=== PATIENT | male | born 1985 | race Hispanic/Latino ===

== ENCOUNTER 2017-01-18 13:04 | Emergency (ER) | payer SELFPAY ==
[2017-01-18 13:44] VITALS: BP 182/95
[2017-01-18] MEDS ORDERED: PERCOCET 5/325 PO ONE (16:18)
--- NOTE | 2017-01-18 19:35 | Emergency Department Report ---
Entered by YONY MARTIN, acting as scribe for QUINN SALAMANCA PA. HPI - General Chief Complaint: Dental/Oral Time Seen by Provider: 01/18/17 15:15 - HPI HPI: 32 y/o male with PMHx of bronchitis, presents to the ED c/o left lower back tooth pain. denies fever and chills. Patient describes feeling "like wanting to pass out" due to tooth pain. Rates pain 10/10 in severity. Patient states he went to dentist yesterday and was prescribed ibuprofen and amoxicillin with mild relief. Patient started to bargain for pain medication. Discussed with him I can give him some pain medicine to go home with should be Ultram / Motrin and I cannot give him anything stronger. Denies and a sore throat or drooling. Denies any coughing or congestion. ED Past Medical Hx - Past Medical History Previous Medical History?: Yes Hx Hypertension: Yes (no meds) Hx Diabetes: Yes (boarder line,no meds) Hx Psychiatric Treatment: Yes (Schizophrenia) Additional medical history: Bronchitis - Surgical History Past Surgical History?: No - Family History Family history: hypertension - Social History Smoking Status: Current Every Day Smoker Substance Use Type: None - Medications Home Medications: Home Medications Medication Instructions Recorded Confirmed Last Taken Type Albuterol Sulfate [Ventolin HFA] 2 puff IH Q4H PRN #1 hfa.aer.ad 06/05/15 Unknown Rx Azithromycin [Zithromax Z-MUSA] 250 mg PO DAILY #1 pkg 06/05/15 Unknown Rx Bactrim DS TAB 1 tab PO BID 06/05/15 06/05/15 06/05/15 History Divalproex [DepaKOTE DR] 500 mg PO DAILY 06/05/15 06/05/15 06/04/15 History FLUoxetine [PROzac] 20 mg PO QDAY 06/05/15 06/05/15 06/04/15 History Loratadine [Claritin] 10 mg PO DAILY #30 tablet 06/05/15 Unknown Rx Prednisone [predniSONE 10 mg 10 mg PO .TAPER #1 tab.ds.pk 06/05/15 Unknown Rx (6-Day Pack, 21 Tabs)] Amoxicillin [Amoxicillin TAB] 875 mg PO BID #20 tablet 06/02/16 Unknown Rx Fluticasone [Flonase] 1 spray NS QDAY #1 bottle 06/02/16 Unknown Rx methylPREDNISolone [Medrol Dose 4 mg PO QAM #1 dosepack 06/02/16 Unknown Rx Musa] traMADol [Ultram] 50 mg PO Q6HR PRN #20 tablet 01/18/17 Unknown Rx ED Review of Systems ROS: Stated complaint: TOOTH PAIN Other details as noted in HPI Comment: All other systems reviewed and negative Constitutional: denies: chills, fever ENT: dental pain. denies: ear pain, throat pain, congestion Respiratory: no symptoms reported Cardiovascular: denies: chest pain, palpitations, edema, syncope Gastrointestinal: denies: abdominal pain, nausea, vomiting, diarrhea Musculoskeletal: denies: back pain, arthralgia, myalgia Skin: denies: rash Neurological: headache. denies: weakness, numbness, paresthesias, confusion, abnormal gait, vertigo Physical Exam - Physical Exam Vital Signs: Vital Signs 01/18/17 13:40 Temperature 97.5 F L Pulse Rate 94 H Respiratory 18 Rate Blood Pressure 182/95 O2 Sat by Pulse 96 Oximetry General: This is a 42-year-old male well-nourished well-developed in no acute distress. Physical Exam: Head: Normocephalic atraumatic Mouth: Moist, no pharyngeal exudate or erythema. Uvula is midline and oral airway is patent. Patient with fractured tooth to right lower #17. No pulp exposure noted. Positive dental caries. No gingival enlargement or dental tenderness. No facial swelling. No peritonsillar abscesses. Neck: Supple, no C-spine tenderness, no tracheal deviation. Nontender to palpate. no adenopathy Ears: Bilateral TMs Pearly ash. bilateral EAC without any redness swelling or drainage Eyes: Bilateral pupils equal and reactive to light, bilateral EOM intact. Bilateral sclera and conjunctiva without injection. Normal accommodation Nose: Mucosa moist, NL mucosa. maxillary and frontal sinus non-tender to palpate. Lungs: Clear to auscultate bilaterally no rhonchi wheezes or rales. Normal work of breathing extremity; No CCE. +2 pulses. No neurovascular compromise Cardiovascular: S1-S2, regular rate rhythm. No murmurs. Skin: clean Dry and intact no rash no lesions Psych: Normal mood and behavior ED Course Vital Signs 01/18/17 13:40 Temperature 97.5 F L Pulse Rate 94 H Respiratory 18 Rate Blood Pressure 182/95 O2 Sat by Pulse 96 Oximetry - Reevaluation(s) Reevaluation #1: 01/18/17 16:17 To received Percocet 5/325 mg 2 tablets prior to discharge with his family. Reevaluation #2: 01/18/17 18:00: Patient discharged home with family in stable condition. ED Medical Decision Making - Medical Decision Making ED course: Patient with closed fracture, toothache and dental caries. He was seen by dentist yesterday and given Motrin and amoxicillin which he said he is taking that he said that Motrin is not relieving his pain. States that he didn' t get the prescription for Motrin filled at and he is been taking over-the- counter Motrin. Discussed with him that prescription Motrin is stronger than [id number] Motrin Suches started taking Tylenol and Ultram to help to relieve his pain. Said discussed with him he needs to start taking an antibiotic prior to having his dental work done. Patient with elevated blood pressure without any history of high blood pressure. He does not have any symptoms and elevated blood pressure. Critical care attestation.: If time is entered above; I have spent that time in minutes in the direct care of this critically ill patient, excluding procedure time. ED Disposition Clinical Impression: Toothache, Dental caries, Elevated blood-pressure reading without diagnosis of hypertension Fracture, tooth Qualifiers: Encounter type: initial encounter Fracture type: closed Qualified Code(s): S02.5XXA - Fracture of tooth (traumatic), initial encounter for closed fracture Disposition: DISCHARGED TO HOME OR SELFCARE Is pt being admited?: No Does the pt Need Aspirin: No Condition: Stable Instructions: Dental Caries (ED), Heart Healthy Diet (ED), Hypertension (ED), Toothache (ED) Additional Instructions: Take medication as prescribed. Dentist. Make follow-up appointment. Dentist for dental procedure The skin along with her blood pressure and schedule appointment with the primary care doctor for follow-up visit high blood pressure reading. Prescriptions: traMADol [Ultram] 50 mg PO Q6HR PRN #20 tablet PRN Reason: Pain Referrals: PRIMARY CARE,MD [Primary Care Provider] - 3-5 Days Your, Dentist [Other] - 3-5 Days Forms: Accompanied Note, Work/School Release Form(ED) This documentation as recorded by the VERONICA barrera ELIZABETH,accurately reflects the service I personally performed and the decisions made by ,QUINN SALAMANCA PA.
== END 2017-01-18 17:03 | disposition home or self-care (01) ==
LOC: ED 13:04
DX: S02.5XXA Fracture of tooth (traumatic), initial encounter for closed fracture (principal); K02.9 Dental caries, unspecified; I10 Essential (primary) hypertension; E11.9 Type 2 diabetes mellitus without complications; F20.9 Schizophrenia, unspecified; F17.200 Nicotine dependence, unspecified, uncomplicated; X58.XXXA Exposure to other specified factors, initial encounter; Y93.89 Activity, other specified; Y99.8 Other external cause status; Y92.89 Other specified places as the place of occurrence of the external cause
CPT/HCPCS: 99282

== ENCOUNTER 2017-01-24 10:07 | Emergency (ER) | payer SELFPAY ==
[2017-01-24 10:46] LABS: Basophils % (Auto) 0.5 % (0.0-1.8); Eosinophils % (Auto) 0.2 % (0.0-4.3); Hematocrit 50.5 % (35.5-45.6); Hemoglobin 17.6 gm/dl (11.8-15.2); Mean Corpuscular HGB Conc 35 % (32-34); Mean Corpuscular Hemoglobin 29 pg (28-32); Mean Corpuscular Volume 84 fl (84-94); Platelet Count 255 K/mm3 (140-440); Red Blood Count 6.05 M/mm3 (3.65-5.03); Red Cell Distribution Width 13.4 % (13.2-15.2); White Blood Count 10.8 K/mm3 (4.5-11.0)
[2017-01-24 11:04] LABS: Anion Gap 23 mmol/L; Blood Urea Nitrogen 18 mg/dL (9-20); Calcium 9.8 mg/dL (8.4-10.2); Carbon Dioxide 23 mmol/L (22-30); Chloride 93.6 mmol/L (98-107); Glucose 157 mg/dL (75-100); Sodium 137 mmol/L (137-145)
[2017-01-24] MEDS ORDERED: MAG-OX PO ONE (19:26)
[2017-01-24] MEDS ORDERED: K-DUR PO ONE (19:26)
--- NOTE | 2017-01-24 19:27 | Emergency Department Report ---
ED General Adult HPI - General Chief complaint: Chest Pain Stated complaint: L SHOULDER PAIN/CP/ELEVATED BP Time Seen by Provider: 01/24/17 19:25 Source: patient, RN notes reviewed Mode of arrival: Ambulatory Limitations: No Limitations - History of Present Illness Initial comments: This is a 32-year-old male. He is previously unknown to me. He has a past medical history of hypertension and schizophrenia. Contrary to what is documented in the nursing note, patient complains of mild dental pain secondary to a recent dental extraction, mild headache, and bilateral arm tingling. To me he denies chest pain, shortness of breath, vomiting, diaphoresis. There is no leg pain. There is no leg swelling. No recent trips greater than 4 hours. No recent hospital admissions. Patient denies vomiting, hematemesis, diaphoresis, homicidality, suicidality, he also denies recent aspirin ingestion within the past 7 days, and denies cocaine ingestion. -: Gradual Location: mouth, left, right, upper extremity Consistency: intermittent Improves with: none Worsens with: none Associated Symptoms: denies other symptoms. denies: confusion, chest pain, cough, diaphoresis, fever/chills, loss of appetite, malaise, nausea/vomiting, shortness of breath, syncope - Related Data Home Medications Medication Instructions Recorded Confirmed Last Taken Bactrim DS TAB 1 tab PO BID 06/05/15 06/05/15 06/05/15 Divalproex [Rayray ALY] 500 mg PO DAILY 06/05/15 06/05/15 06/04/15 FLUoxetine [PROzac] 20 mg PO QDAY 06/05/15 06/05/15 06/04/15 Previous Rx's Medication Instructions Recorded Last Taken Type Albuterol Sulfate [Ventolin HFA] 2 puff IH Q4H PRN #1 hfa.aer.ad 06/05/15 Unknown Rx Azithromycin [Zithromax Z-MUSA] 250 mg PO DAILY #1 pkg 06/05/15 Unknown Rx Loratadine [Claritin] 10 mg PO DAILY #30 tablet 06/05/15 Unknown Rx Prednisone [predniSONE 10 mg 10 mg PO .TAPER #1 tab.ds.pk 06/05/15 Unknown Rx (6-Day Pack, 21 Tabs)] Amoxicillin [Amoxicillin TAB] 875 mg PO BID #20 tablet 06/02/16 Unknown Rx Fluticasone [Flonase] 1 spray NS QDAY #1 bottle 06/02/16 Unknown Rx methylPREDNISolone [Medrol Dose 4 mg PO QAM #1 dosepack 06/02/16 Unknown Rx Musa] traMADol [Ultram] 50 mg PO Q6HR PRN #20 tablet 01/18/17 Unknown Rx Quetiapine Fumarate [SEROquel] 50 mg PO BID #60 tab 01/25/17 Unknown Rx Allergies Allergy/AdvReac Type Severity Reaction Status Date / Time No Known Allergies Allergy Verified 01/24/17 10:13 ED Review of Systems ROS: Stated complaint: L SHOULDER PAIN/CP/ELEVATED BP Other details as noted in HPI Constitutional: denies: fever ENT: dental pain Cardiovascular: as per HPI Endocrine: see HPI Gastrointestinal: as per HPI Genitourinary: as per HPI Musculoskeletal: as per HPI Skin: as per HPI Neurological: as per HPI, numbness, paresthesias Psychiatric: as per HPI. denies: homicidal thoughts, suicidal thoughts ED Past Medical Hx - Past Medical History Hx Hypertension: Yes Hx Diabetes: Yes (boarderline,no meds) Hx Psychiatric Treatment: Yes (Schizophrenia) Additional medical history: Bronchitis - Surgical History Past Surgical History?: No - Social History Smoking Status: Current Every Day Smoker Substance Use Type: Prescribed - Medications Home Medications: Home Medications Medication Instructions Recorded Confirmed Last Taken Type Albuterol Sulfate [Ventolin HFA] 2 puff IH Q4H PRN #1 hfa.aer.ad 06/05/15 Unknown Rx Azithromycin [Zithromax Z-MUSA] 250 mg PO DAILY #1 pkg 06/05/15 Unknown Rx Bactrim DS TAB 1 tab PO BID 06/05/15 06/05/15 06/05/[address] [DepaKOTE DR] 500 mg PO DAILY 06/05/15 06/05/15 06/04/15 History FLUoxetine [PROzac] 20 mg PO QDAY 06/05/15 06/05/15 06/04/15 History Loratadine [Claritin] 10 mg PO DAILY #30 tablet 06/05/15 Unknown Rx Prednisone [predniSONE 10 mg 10 mg PO .TAPER #1 tab.ds.pk 06/05/15 Unknown Rx (6-Day Pack, 21 Tabs)] Amoxicillin [Amoxicillin TAB] 875 mg PO BID #20 tablet 06/02/16 Unknown Rx Fluticasone [Flonase] 1 spray NS QDAY #1 bottle 06/02/16 Unknown Rx methylPREDNISolone [Medrol Dose 4 mg PO QAM #1 dosepack 06/02/16 Unknown Rx Musa] traMADol [Ultram] 50 mg PO Q6HR PRN #20 tablet 01/18/17 Unknown Rx Quetiapine Fumarate [SEROquel] 50 mg PO BID #60 tab 01/25/17 Unknown Rx ED Physical Exam - General Limitations: No Limitations General appearance: alert, in no apparent distress - Head Head exam: Present: atraumatic, normocephalic - Eye Eye exam: Present: normal appearance, EOMI. Absent: nystagmus - ENT ENT exam: Present: normal exam, normal orophraynx, mucous membranes moist, normal external ear exam - Neck Neck exam: Present: normal inspection, full ROM. Absent: tenderness, meningismus - Respiratory Respiratory exam: Present: normal lung sounds bilaterally. Absent: respiratory distress, wheezes, rales, rhonchi, stridor, chest wall tenderness - Cardiovascular Cardiovascular Exam: Present: regular rate, normal rhythm, normal heart sounds. Absent: bradycardia, tachycardia, irregular rhythm, systolic murmur, diastolic murmur, rubs, gallop - GI/Abdominal GI/Abdominal exam: Present: soft, normal bowel sounds. Absent: distended, tenderness, guarding, rebound, rigid, pulsatile mass - Rectal Rectal exam: Present: deferred - Extremities Exam Extremities exam: Present: normal inspection, full ROM, normal capillary refill. Absent: tenderness, pedal edema, joint swelling, calf tenderness - Back Exam Back exam: Present: normal inspection, full ROM. Absent: tenderness, CVA tenderness (R), CVA tenderness (L), muscle spasm, paraspinal tenderness, vertebral tenderness - Neurological Exam Neurological exam: Present: alert, oriented X3, normal gait, other (Extraocular movements intact. Tongue midline. No facial droop. Facial sensation intact to light touch in the V1, V2, V3 distribution bilaterally. 5 and 5 strength in 4 extremities.. Sensation is intact to light touch in 4 extremities.). Absent : motor sensory deficit - Psychiatric Psychiatric exam: Present: normal affect, normal mood - Skin Skin exam: Present: warm, dry, intact, normal color. Absent: rash ED Course Vital Signs 05/25/17 05/25/17 05/25/17 10:13 21:06 22:37 Temperature 97.2 F L 98.8 F Pulse Rate 69 54 L 86 Respiratory 16 20 18 Rate Blood Pressure 141/67 Blood Pressure 116/48 136/70 [Left] O2 Sat by Pulse 99 97 98 Oximetry 01/24/17 22:39 Temperature Pulse Rate Respiratory 20 Rate Blood Pressure Blood Pressure [Left] O2 Sat by Pulse 97 Oximetry - Reevaluation(s) Reevaluation #1: 01/24/17 20:45 differential diagnosis: Nonspecific paresthesias, nonspecific dentalgia, Gen. medical evaluation Assessment and plan: 32-year-old male with a number of nonspecific complaints. He is afebrile with reassuring vital signs, has a GCS of 15, with an NIH score of 0. He is not complaining admitted to chest pain or shortness of breath to me. He has no extremity weakness or numbness, there is no clinical indication of epidural compression syndrome, he walks with a steady gait. His intraoral exam is unremarkable, he is low risk by MARIA LUZ score, low risk by heart score, has no pulmonary embolus or DVT risk factors, is low risk by well' s criteria, and is perc negative. His post extraction dental sites appear to be healing well, the patient is suitable to follow up with an outpatient primary care doctor for his numerous nonspecific symptoms. Initial EKG has nonspecific abnormalities, repeat EKG normalized, patient suitable to follow up with outpatient cardiology. Given that he does not complain of chest pain or shortness of breath to [place], I find the patient to be very low risk for major adverse cardiac event. ED Medical Decision Making - Lab Data Result diagrams: 01/24/17 10:29 01/24/17 10:29 Vital Signs 01/24/17 10:13 Temperature 97.2 F L Pulse Rate 69 Respiratory 16 Rate Blood Pressure 141/67 O2 Sat by Pulse 99 Oximetry Lab Results 01/24/17 01/24/17 01/24/17 Range/Units 10:29 10:29 13:14 WBC 10.8 (4.5-11.0) K/mm3 RBC 6.05 H (3.65-5.03) M/mm3 Hgb 17.6 H (11.8-15.2) gm/dl Hct 50.5 H (35.5-45.6) % MCV 84 (84-94) fl MCH 29 (28-32) pg MCHC 35 H (32-34) % RDW 13.4 (13.2-15.2) % Plt Count 255 (140-440) K/mm3 Lymph % (Auto) 18.3 (13.4-35.0) % Monroe % (Auto) 7.9 H (0.0-7.3) % Eos % (Auto) 0.2 (0.0-4.3) % Baso % (Auto) 0.5 (0.0-1.8) % Lymph # 2.0 (1.2-5.4) K/mm3 Monroe # 0.9 H (0.0-0.8) K/mm3 Eos # 0.0 (0.0-0.4) K/mm3 Baso # 0.1 (0.0-0.1) K/mm3 Seg Neutrophils % 73.1 H (40.0-70.0) % Seg Neutrophils # 7.9 H (1.8-7.7) K/mm3 Sodium 137 (137-145) mmol/L Potassium 3.0 L (3.6-5.0) mmol/L Chloride 93.6 L (98-107) mmol/L Carbon Dioxide 23 (22-30) mmol/L Anion Gap 23 mmol/L BUN 18 (9-20) mg/dL Creatinine 0.9 (0.8-1.5) mg/dL Estimated GFR > 60 ml/min BUN/Creatinine Ratio 20.00 % Glucose 157 H (75-100) mg/dL Calcium 9.8 (8.4-10.2) mg/dL Magnesium (1.7-2.3) mg/dL Troponin T < 0.010 < 0.010 (0.00-0.029) ng/mL 01/24/17 Range/Units 13:14 WBC (4.5-11.0) K/mm3 RBC (3.65-5.03) M/mm3 Hgb (11.8-15.2) gm/dl Hct (35.5-45.6) % MCV (84-94) fl MCH (28-32) pg MCHC (32-34) % RDW (13.2-15.2) % Plt Count (140-440) K/mm3 Lymph % (Auto) (13.4-35.0) % Monroe % (Auto) (0.0-7.3) % Eos % (Auto) (0.0-4.3) % Baso % (Auto) (0.0-1.8) % Lymph # (1.2-5.4) K/mm3 Monroe # (0.0-0.8) K/mm3 Eos # (0.0-0.4) K/mm3 Baso # (0.0-0.1) K/mm3 Seg Neutrophils % (40.0-70.0) % Seg Neutrophils # (1.8-7.7) K/mm3 Sodium (137-145) mmol/L Potassium (3.6-5.0) mmol/L Chloride (98-107) mmol/L Carbon Dioxide (22-30) mmol/L Anion Gap mmol/L BUN (9-20) mg/dL Creatinine (0.8-1.5) mg/dL Estimated GFR ml/min BUN/Creatinine Ratio % Glucose (75-100) mg/dL Calcium (8.4-10.2) mg/dL Magnesium 2.30 (1.7-2.3) mg/dL Troponin T (0.00-0.029) ng/mL - EKG Data -: EKG Interpreted by Me EKG shows normal: sinus rhythm Rate: normal - EKG Data 01/24/17 20:48 EKG #1 demonstrates sinus bradycardia, 59 beats per minute, borderline left axis deviation, nonspecific T-wave abnormality, not morphologically consistent with STEMI. EKG #2 demonstrates normal sinus, 60 bpm, normal axis, normal intervals, not morphologically consistent with STEMI. - Radiology Data Radiology results: image reviewed interpreted by me: X-ray of the chest is negative for acute disease Critical care attestation.: If time is entered above; I have spent that time in minutes in the direct care of this critically ill patient, excluding procedure time. ED Disposition Clinical Impression: Toothache Disposition: DISCHARGED TO HOME OR SELFCARE Is pt being admited?: No Does the pt Need Aspirin: No Condition: Stable Additional Instructions: Continue current outpatient medications. 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 Return to the ER right away with new pain , worsened pain, migration of pain, fevers or chills, intractable nausea or vomiting, confusion, change in mental status, inability to tolerate liquid feeds. Referrals: PRIMARY CARE, [Primary Care Provider] - 3-5 Days JAMES CABALLERO MD [Staff Physician] - 3-5 Days ELEANOR SMALL MD [Staff Physician] - 3-5 Days GINETTE MAYA MD [Staff Physician] - 3-5 Days
[2017-01-24] MEDS ORDERED: LIDOCAINE VISCOUS 2% PO ONE (19:42)
[2017-01-24] MEDS ORDERED: TORADOL IM ONE (19:42)
[2017-01-24 22:43] VITALS: BP 136/70
--- NOTE | 2017-01-25 07:28 | XRay Report ---
CHEST 2 VIEWS INDICATION: Chest pain. COMPARISON: 09/02/2010 FINDINGS: PA and lateral chest radiographs demonstrate stable cardiomediastinal silhouette. Clear lungs. Slightly elevated right hemidiaphragm. Unremarkable bones. CONCLUSION: No acute disease. Thank you for the opportunity to participate in this patient's care.
== END 2017-01-24 22:37 | disposition home or self-care (01) ==
LOC: ED 10:07
DX: K08.89 Other specified disorders of teeth and supporting structures (principal); I10 Essential (primary) hypertension; F20.9 Schizophrenia, unspecified; F17.200 Nicotine dependence, unspecified, uncomplicated
CPT/HCPCS: 36415; 71020; 80048; 83735; 84484; 85025; 93005; 93010; 96372; 99285; J1885

== ENCOUNTER 2017-01-25 03:37 | Emergency (ER) | payer SELFPAY ==
--- NOTE | 2017-01-25 13:14 | Emergency Department Report ---
ED General Adult HPI - General Chief complaint: Headache Stated complaint: MIGRAINE Time Seen by Provider: 01/25/17 12:49 Source: patient Mode of arrival: Ambulatory Limitations: No Limitations - History of Present Illness Initial comments: The patient does not complain of headache at all. He is not speaking with the word salad. He speaks coherently if you listen carefully. He has a history of schizophrenia and bipolar disorder. He admits that he has had previous treatment at the [facility] but has not been there for 2 years. He is not hallucinating, suicidal agitated or violent. He has no thoughts of self-harm. He states he is suffering from "anxiety and panic". He was seen here yesterday for hypokalemia and repletion was begun with 40 of potassium by mouth. He states the reason that he didn't go to the [facility] today is because it is not open "until after Saturday". He is requesting something for anxiety and panic. This is his third emergency department visit over the past week. I saw him for vague complaints of toothache several days ago. He presented for other complaints yesterday and had an expanded workup which demonstrated a potassium of 3.0 and hemoglobin over 17. He tells me he is eating and drinking fine now. He is a frequent smoker. Resents to the emergency department now the second time basically reeking of tobacco. He is not agitated at this time. He admits that he has not taken his valproic acid. He states he is not taking his Lamotrigine anymore. -: Gradual Severity scale (0 -10): 10 Consistency: intermittent, now resolved Improves with: none Worsens with: none Associated Symptoms: denies other symptoms Treatments Prior to Arrival: none - Related Data Home Medications Medication Instructions Recorded Confirmed Last Taken Bactrim DS TAB 1 tab PO BID 06/05/15 06/05/15 06/05/15 Divalproex [Rayray ALY] 500 mg PO DAILY 06/05/15 06/05/15 06/04/15 FLUoxetine [PROzac] 20 mg PO QDAY 06/05/15 06/05/15 06/04/15 Previous Rx's Medication Instructions Recorded Last Taken Type Albuterol Sulfate [Ventolin HFA] 2 puff IH Q4H PRN #1 hfa.aer.ad 06/05/15 Unknown Rx Azithromycin [Zithromax Z-VON] 250 mg PO DAILY #1 pkg 06/05/15 Unknown Rx Loratadine [Claritin] 10 mg PO DAILY #30 tablet 06/05/15 Unknown Rx Prednisone [predniSONE 10 mg 10 mg PO .TAPER #1 tab.ds.pk 06/05/15 Unknown Rx (6-Day Pack, 21 Tabs)] Amoxicillin [Amoxicillin TAB] 875 mg PO BID #20 tablet 06/02/16 Unknown Rx Fluticasone [Flonase] 1 spray NS QDAY #1 bottle 06/02/16 Unknown Rx methylPREDNISolone [Medrol Dose 4 mg PO QAM #1 dosepack 06/02/16 Unknown Rx Von] traMADol [Ultram] 50 mg PO Q6HR PRN #20 tablet 01/18/17 Unknown Rx Quetiapine Fumarate [SEROquel] 50 mg PO BID #60 tab 01/25/17 Unknown Rx Allergies Allergy/AdvReac Type Severity Reaction Status Date / Time No Known Allergies Allergy Verified 01/24/17 10:13 ED Review of Systems ROS: Stated complaint: MIGRAINE Other details as noted in HPI Constitutional: denies: chills, fever Eyes: denies: eye pain, eye discharge, vision change ENT: denies: ear pain, throat pain Respiratory: denies: cough, shortness of breath, wheezing Cardiovascular: denies: chest pain, palpitations Endocrine: no symptoms reported Gastrointestinal: denies: abdominal pain, nausea, diarrhea Genitourinary: denies: urgency, dysuria Musculoskeletal: denies: back pain, joint swelling, arthralgia Skin: denies: rash, lesions Neurological: denies: headache, weakness, paresthesias Psychiatric: as per HPI, anxiety. denies: depression Hematological/Lymphatic: denies: easy bleeding, easy bruising ED Past Medical Hx - Past Medical History Previous Medical History?: Yes ("anxiety and panic) Hx Hypertension: Yes Hx Diabetes: Yes (boarderline,no meds) Hx Psychiatric Treatment: Yes (Schizophrenia) Additional medical history: Bronchitis - Surgical History Past Surgical History?: No - Social History Smoking Status: Current Every Day Smoker Substance Use Type: None - Medications Home Medications: Home Medications Medication Instructions Recorded Confirmed Last Taken Type Albuterol Sulfate [Ventolin HFA] 2 puff IH Q4H PRN #1 hfa.aer.ad 06/05/15 Unknown Rx Azithromycin [Zithromax Z-VON] 250 mg PO DAILY #1 pkg 06/05/15 Unknown Rx Bactrim DS TAB 1 tab PO BID 06/05/15 06/05/15 06/05/[address] [DepaKOTE DR] 500 mg PO DAILY 06/05/15 06/05/15 06/04/15 History FLUoxetine [PROzac] 20 mg PO QDAY 06/05/15 06/05/15 06/04/15 History Loratadine [Claritin] 10 mg PO DAILY #30 tablet 06/05/15 Unknown Rx Prednisone [predniSONE 10 mg 10 mg PO .TAPER #1 tab.ds.pk 06/05/15 Unknown Rx (6-Day Pack, 21 Tabs)] Amoxicillin [Amoxicillin TAB] 875 mg PO BID #20 tablet 06/02/16 Unknown Rx Fluticasone [Flonase] 1 spray NS QDAY #1 bottle 06/02/16 Unknown Rx methylPREDNISolone [Medrol Dose 4 mg PO QAM #1 dosepack 06/02/16 Unknown Rx Von] traMADol [Ultram] 50 mg PO Q6HR PRN #20 tablet 01/18/17 Unknown Rx Quetiapine Fumarate [SEROquel] 50 mg PO BID #60 tab 01/25/17 Unknown Rx ED Physical Exam - General Limitations: No Limitations General appearance: alert, in no apparent distress - Head Head exam: Present: atraumatic, normocephalic - Eye Eye exam: Present: normal appearance. Absent: scleral icterus - ENT ENT exam: Present: mucous membranes moist - Neck Neck exam: Present: normal inspection - Respiratory Respiratory exam: Present: normal lung sounds bilaterally. Absent: respiratory distress - Cardiovascular Cardiovascular Exam: Present: regular rate, normal rhythm. Absent: systolic murmur, diastolic murmur, rubs, gallop - GI/Abdominal GI/Abdominal exam: Present: soft, normal bowel sounds. Absent: distended, tenderness, guarding, rebound - Rectal Rectal exam: Present: deferred - Extremities Exam Extremities exam: Present: normal inspection - Back Exam Back exam: Present: normal inspection - Neurological Exam Neurological exam: Present: alert, oriented X3, CN II-XII intact. Absent: motor sensory deficit - Psychiatric Psychiatric exam: Present: normal affect, normal mood - Skin Skin exam: Present: warm, dry, intact, normal color. Absent: rash ED Course Vital Signs 01/25/17 01/25/17 01/25/17 03:47 06:45 11:25 Temperature 98.2 F 98.1 F Pulse Rate 76 59 L 61 Respiratory 18 20 16 Rate Blood Pressure 150/75 143/81 O2 Sat by Pulse 100 98 97 Oximetry - Reevaluation(s) Reevaluation #1: She does not meet criteria for involuntary confinement. I'm going to start him on Seroquel 50 mg twice a day 01/25/17 13:15 ED Medical Decision Making - Lab Data Reviewed prior labs within less than 24 hours. Critical care attestation.: If time is entered above; I have spent that time in minutes in the direct care of this critically ill patient, excluding procedure time. ED Disposition Clinical Impression: Schizophrenia Qualifiers: Schizophrenia type: other Qualified Code(s): F20.89 - Other schizophrenia; F20.8 - Other schizophrenia Bipolar disorder Qualifiers: Active/Remission status: currently active Current bipolar episode type: mixed Current episode severity: mild Qualified Code(s): F31.61 - Bipolar disorder, current episode mixed, mild Disposition: DISCHARGED TO HOME OR SELFCARE Is pt being admited?: No Does the pt Need Aspirin: No Condition: Stable Instructions: Schizophrenia (ED), Bipolar Disorder (ED) Additional Instructions: Return as needed any acute change or problem. Rx as directed. [facility]. walk-in on Saturday. Prescriptions: Quetiapine Fumarate [SEROquel] 50 mg PO BID #60 tab Referrals: PRIMARY CARE, [Primary Care Provider] - 3-5 Days Time of Disposition: 13:17
[2017-01-25] MEDS ORDERED: K-DUR PO ONE (13:18)
[2017-01-25 16:34] VITALS: BP 125/59
== END 2017-01-25 14:30 | disposition home or self-care (01) ==
LOC: ED 03:37
DX: F20.89 Other schizophrenia (principal); F31.61 Bipolar disorder, current episode mixed, mild; I10 Essential (primary) hypertension; F17.200 Nicotine dependence, unspecified, uncomplicated
CPT/HCPCS: 99282

== ENCOUNTER 2017-08-05 18:23 | Emergency (ER) | payer SELFPAY ==
[2017-08-05 19:16] LABS: Hematocrit 50.7 % (35.5-45.6); Mean Corpuscular HGB Conc 33 % (32-34); Mean Corpuscular Hemoglobin 29 pg (28-32); Mean Corpuscular Volume 86 fl (84-94); Platelet Count 228 K/mm3 (140-440); Red Blood Count 5.92 M/mm3 (3.65-5.03); Red Cell Distribution Width 14.1 % (13.2-15.2)
--- NOTE | 2017-08-05 19:22 | Emergency Department Report ---
Chief Complaint: Dizziness Stated Complaint: DIZZINESS/SYNCOPE Time Seen by Provider: 08/05/17 19:19 - HPI History of Present Illness: Patient with H/O HTN and schizophrenia presents to ED with c/o elevated BP, nausea and dizziness since yesterday; denies KOHLER, blurry vision, CP and SOB; admits he hasn't taken his BP meds in 2-3 months; also states he has been having intermittent right leg pain for the past month and more recently, trouble urinating, denies H/O blood clots and CA, dysuria, hematuria and penile discharge - ROS Review of Systems: Negative except for those stated in HPI - Exam Vital Signs: Vital Signs 08/05/17 18:50 Temperature 98.2 F Pulse Rate 92 H Respiratory 18 Rate Blood Pressure 168/94 O2 Sat by Pulse 98 Oximetry Physical Exam: NAD RRR CTAB Right leg - nontender thigh and calf, no pitting edema, good pedal pulses bilaterally MSE screening note: Focused history and physical exam performed. Due to findings the following was ordered: EKG, labs, urine Patient to be seen by provider in Main ED ED Medical Decision Making - Lab Data Result diagrams: 08/05/17 19:08 ED Disposition for MSE Condition: Stable
[2017-08-05 19:37] LABS: Anion Gap 20 mmol/L; BUN/Creatinine Ratio 21; Blood Urea Nitrogen 15 mg/dL (9-20); Calcium 9.2 mg/dL (8.4-10.2); Carbon Dioxide 25 mmol/L (22-30); Chloride 99.2 mmol/L (98-107); Glucose 117 mg/dL (75-100); Potassium 4.1 mmol/L (3.6-5.0); Sodium 140 mmol/L (137-145)
[2017-08-05 20:12] LABS: Bacteria,Urine 1+ /HPF (Negative); Bilirubin,Urine NEG (Negative); Blood,Urine NEG (Negative); Ketones,Urine NEG (Negative); Leukocyte Esterase,Urine NEG (Negative); Nitrite,Urine NEG (Negative); Protein,Urine <15 mg/dL mg/dL (Negative); Urobilinogen,Urine < 2.0 mg/dL (<2.0)
--- NOTE | 2017-08-05 20:26 | Cat Scan Report ---
FINAL REPORT EXAM: CT HEAD/BRAIN WO CON HISTORY: syncope TECHNIQUE: Standard unenhanced CT of the head at 5.0 millimeter axial increments PRIORS: None. FINDINGS: The ventricular system is normal in size and configuration. There is no evidence for parenchymal volume loss. There is no evidence for mass lesion, mass effect, midline shift, acute intracranial hemorrhage, or acute ischemia/ infarction. Visualized paranasal sinuses demonstrate extensive mucosal thickening involving the right maxillary sinus. IMPRESSION: No acute intracranial process noted. Chronic right maxillary sinusitis
[2017-08-06 05:17] VITALS: BP 146/78
--- NOTE | 2017-08-06 06:42 | Emergency Department Report ---
ED General Adult HPI - General Chief complaint: Dizziness Stated complaint: DIZZINESS/SYNCOPE Time Seen by Provider: 08/05/17 19:19 Source: patient, RN notes reviewed Mode of arrival: Ambulatory Limitations: No Limitations - History of Present Illness Initial comments: This is a 32-year-old male who presents to the ER with complaint of lightheadedness and feeling like he was in was going to pass out. He does not have any severe pain at this time. His symptoms have since resolved. They do not radiate anywhere. They had no exacerbating or relieving factors. Patient denies recent travel, blood clots in the legs, DVT or pulmonary embolus risk factors. Patient is currently seeing on a stretcher and requesting to eat. -: Gradual Severity scale (0 -10): 0 Consistency: now resolved Improves with: none Worsens with: none Associated Symptoms: denies: confusion, chest pain, cough, diaphoresis, fever/ chills, loss of appetite, malaise, rash, seizure, shortness of breath, weakness - Related Data Home Medications Medication Instructions Recorded Confirmed Last Taken Bactrim DS TAB 1 tab PO BID 06/05/15 06/05/15 06/05/[address] [Rayray DR] 500 mg PO DAILY 06/05/15 06/05/15 06/04/15 FLUoxetine [PROzac] 20 mg PO QDAY 06/05/15 06/05/15 06/04/15 Previous Rx's Medication Instructions Recorded Last Taken Type Albuterol Sulfate [Ventolin HFA] 2 puff IH Q4H PRN #1 hfa.aer.ad 06/05/15 Unknown Rx Azithromycin [Zithromax Z-VON] 250 mg PO DAILY #1 pkg 06/05/15 Unknown Rx Loratadine [Claritin] 10 mg PO DAILY #30 tablet 06/05/15 Unknown Rx Prednisone [predniSONE 10 mg 10 mg PO .TAPER #1 tab.ds.pk 06/05/15 Unknown Rx (6-Day Pack, 21 Tabs)] Amoxicillin [Amoxicillin TAB] 875 mg PO BID #20 tablet 06/02/16 Unknown Rx Fluticasone [Flonase] 1 spray NS QDAY #1 bottle 06/02/16 Unknown Rx methylPREDNISolone [Medrol Dose 4 mg PO QAM #1 dosepack 10/01/16 Unknown Rx Von] traMADol [Ultram] 50 mg PO Q6HR PRN #20 tablet 01/18/17 Unknown Rx Quetiapine Fumarate [SEROquel] 50 mg PO BID #60 tab 01/25/17 Unknown Rx Allergies Allergy/AdvReac Type Severity Reaction Status Date / Time No Known Allergies Allergy Verified 01/24/17 10:13 ED Review of Systems ROS: Stated complaint: DIZZINESS/SYNCOPE Other details as noted in HPI ED Past Medical Hx - Past Medical History Hx Hypertension: Yes Hx Diabetes: Yes (boarderline,no meds) Hx Psychiatric Treatment: Yes (Schizophrenia) Additional medical history: Bronchitis - Social History Smoking Status: Current Every Day Smoker Substance Use Type: None - Medications Home Medications: Home Medications Medication Instructions Recorded Confirmed Last Taken Type Albuterol Sulfate [Ventolin HFA] 2 puff IH Q4H PRN #1 hfa.aer.ad 06/05/15 Unknown Rx Azithromycin [Zithromax Z-VON] 250 mg PO DAILY #1 pkg 06/05/15 Unknown Rx Bactrim DS TAB 1 tab PO BID 06/05/15 06/05/15 06/05/[address] [DepaKOTE DR] 500 mg PO DAILY 06/05/15 06/05/15 06/04/15 History FLUoxetine [PROzac] 20 mg PO QDAY 06/05/15 06/05/15 06/04/15 History Loratadine [Claritin] 10 mg PO DAILY #30 tablet 06/05/15 Unknown Rx Prednisone [predniSONE 10 mg 10 mg PO .TAPER #1 tab.ds.pk 06/05/15 Unknown Rx (6-Day Pack, 21 Tabs)] Amoxicillin [Amoxicillin TAB] 875 mg PO BID #20 tablet 06/02/16 Unknown Rx Fluticasone [Flonase] 1 spray NS QDAY #1 bottle 06/02/16 Unknown Rx methylPREDNISolone [Medrol Dose 4 mg PO QAM #1 dosepack 06/02/16 Unknown Rx Von] traMADol [Ultram] 50 mg PO Q6HR PRN #20 tablet 01/18/17 Unknown Rx Quetiapine Fumarate [SEROquel] 50 mg PO BID #60 tab 01/25/17 Unknown Rx ED Physical Exam - General Limitations: No Limitations General appearance: alert, in no apparent distress - Head Head exam: Present: atraumatic, normocephalic - Eye Eye exam: Present: normal appearance, PERRL, EOMI, other (visual acuity intact to finger counting, color perception, reading at a close distance). Absent: nystagmus - ENT ENT exam: Present: normal exam, normal orophraynx, mucous membranes moist, TM's normal bilaterally, normal external ear exam - Neck Neck exam: Present: normal inspection, full ROM - Respiratory Respiratory exam: Present: normal lung sounds bilaterally. Absent: respiratory distress, chest wall tenderness - Cardiovascular Cardiovascular Exam: Present: regular rate, normal rhythm, normal heart sounds. Absent: bradycardia, tachycardia, irregular rhythm, systolic murmur, diastolic murmur, rubs, gallop - GI/Abdominal GI/Abdominal exam: Present: soft, normal bowel sounds. Absent: distended, tenderness, guarding, rebound, rigid, pulsatile mass - Rectal Rectal exam: Present: deferred - Extremities Exam Extremities exam: Present: normal inspection, full ROM, normal capillary refill , other (there is minimal right posterior hamstring tenderness. This is reproducible. There is no redness, pus or streaking. There is no palpable cord. There is negative Homans sign. 2+ pulses noted in the bilateral upper and lower extremities. The compartments are soft.). Absent: pedal edema, joint swelling, calf tenderness - Back Exam Back exam: Present: normal inspection, full ROM. Absent: tenderness, CVA tenderness (R), paraspinal tenderness, vertebral tenderness - Neurological Exam Neurological exam: Present: alert, oriented X3, CN II-XII intact, normal gait ( negative pronator drift. Negative Romberg examination. Normal tandem gait. Negative past pointing.), other (Extraocular movements intact. Tongue midline. No facial droop. Facial sensation intact to light touch in the V1, V2, V3 distribution bilaterally. 5 and 5 strength in 4 extremities.. Sensation is intact to light touch in 4 extremities.). Absent: motor sensory deficit - Psychiatric Psychiatric exam: Present: normal affect, normal mood - Skin Skin exam: Present: warm, dry, intact, normal color. Absent: rash ED Course Vital Signs 08/05/17 08/05/17 08/05/17 18:28 18:50 23:37 Temperature 98.2 F 98.0 F Pulse Rate 95 H 92 H 79 Pulse Rate [ Lying] Respiratory 18 18 18 Rate Blood Pressure 168/94 168/94 177/88 Blood Pressure [Left] Blood Pressure [Lying] O2 Sat by Pulse 95 98 97 Oximetry 08/05/17 08/06/17 08/06/17 23:38 02:15 02:44 Temperature 98.0 F Pulse Rate 79 79 Pulse Rate [ 79 Lying] Respiratory 18 18 16 Rate Blood Pressure 177/88 Blood Pressure 157/73 [Left] Blood Pressure 157/73 [Lying] O2 Sat by Pulse 97 98 100 Oximetry 08/06/17 05:16 Temperature Pulse Rate 68 Pulse Rate [ Lying] Respiratory 20 Rate Blood Pressure Blood Pressure 146/78 [Left] Blood Pressure [Lying] O2 Sat by Pulse 97 Oximetry ED Medical Decision Making - Lab Data Result diagrams: 08/05/17 19:08 08/05/17 19:08 Vital Signs 08/05/17 08/05/17 08/05/17 18:28 18:50 23:37 Temperature 98.2 F 98.0 F Pulse Rate 95 H 92 H 79 Pulse Rate [ Lying] Respiratory 18 18 18 Rate Blood Pressure 168/94 168/94 177/88 Blood Pressure [Left] Blood Pressure [Lying] O2 Sat by Pulse 95 98 97 Oximetry 08/05/17 08/06/17 08/06/17 23:38 02:15 02:44 Temperature 98.0 F Pulse Rate 79 79 Pulse Rate [ 79 Lying] Respiratory 18 18 16 Rate Blood Pressure 177/88 Blood Pressure 157/73 [Left] Blood Pressure 157/73 [Lying] O2 Sat by Pulse 97 98 100 Oximetry 08/06/17 05:16 Temperature Pulse Rate 68 Pulse Rate [ Lying] Respiratory 20 Rate Blood Pressure Blood Pressure 146/78 [Left] Blood Pressure [Lying] O2 Sat by Pulse 97 Oximetry - EKG Data -: EKG Interpreted by Nc EKG shows normal: sinus rhythm Rate: normal - EKG Data 08/06/17 06:39 Normal sinus, 89 bpm, left axis deviation, left anterior fascicular block, borderline left ventricular hypertrophy/high left ventricular voltage, poor R- wave progression, QTC prolonged, abnormal EKG, appears unchanged from prior from December 2016. - Radiology Data Radiology results: report reviewed, image reviewed Noncontrast CT scan of the brain is negative for acute disease, chronic right- sided maxillary sinusitis is suggested - Medical Decision Making Differential diagnosis, including without limited to: Orthostasis, vagal event, dehydration Assessment and plan: 32-year-old male with a primary complaint of dizziness and near syncope. No pulmonary embolus or DVT risk factors, low risk by well's criteria, perc negative. The patient does not described his sensation of dizziness or near syncope as vertiginous in nature. He is afebrile, with reassuring vital signs, walks with a steady gait, and has an unremarkable neurologic examination. Patient has been in the ER for over 10 hours without clinical decompensation, his EKG is abnormal but unchanged from prior, laboratory studies suggest dehydration. At one point in time, he did mention nonspecific difficulty with urination, but denied testicular pain, or irritative urinary symptoms. His urinalysis does not corroborate any infectious etiology. There does not appear to be any emergent condition at this time, and the patient is medically suitable to follow up with outpatient primary care doctor or complementary health therapists for his near syncope and elevated blood pressure. He will be discharged at this time, with instructions to follow up. Critical care attestation.: If time is entered above; I have spent that time in minutes in the direct care of this critically ill patient, excluding procedure time. ED Disposition Clinical Impression: Syncope, near Disposition: DC-01 TO HOME OR SELFCARE Is pt being admited?: No Does the pt Need Aspirin: No Condition: Stable Instructions: Syncope (ED) Additional Instructions: Follow-up with a primary care doctor or complementary health therapists within the next 5-7 days. Drink 6-8 cups of water per day. Make certain to have an appropriate sleep schedule, and get at least 6-8 hours of sleep per day. Return to the ER right away with fevers, chills, chest pain, shortness of breath, confusion, projectile vomiting, change in mental status. EKG demonstrated abnormalities but appears unchanged from prior EKG; blood pressure was elevated, and this should be also follow up by either primary care or cardiology as recommended. Long-term complications of hypertension and elevated blood pressure, include stroke, heart attack, disability, , paralysis, loss of quality of life. Therefore, it is very important to follow-up for outpatient management for elevated blood pressure. Referrals: PRIMARY CARE, [Primary Care Provider] - 3-5 Days [facility] [Provider Group] - 3-5 Days [facility] [Provider Group] - 3-5 Days [facility] [Provider Group] - 3-5 Days Forms: Work/School Release Form
== END 2017-08-06 07:03 | disposition home or self-care (01) ==
LOC: ED 18:23
DX: R55 Syncope and collapse (principal); I10 Essential (primary) hypertension; F20.9 Schizophrenia, unspecified; F17.200 Nicotine dependence, unspecified, uncomplicated
CPT/HCPCS: 36415; 70450; 80048; 81001; 85027; 93005; 93010